=== PATIENT | male | born 1940 | race Caucasian/White ===

== ENCOUNTER 2019-05-26 00:05 | Emergency (ER) | payer OTHER ==
[~2019-05-26] VITALS: Ht 167.6 cm; Wt 75.3 kg
[~2019-05-26 00:05] MED LIST: ASPI81TA31 PO
--- NOTE | 2019-05-26 00:45 | NUR ---
Pt states doesn't take any medications.
[2019-05-26] MEDS ORDERED: IV NORMAL SALINE 1000 ML BAG IV ONE (01:00)
[2019-05-26 01:18] LABS: BASOPHILS # (AUTO) 0.1 K/uL (0.0-8.0); BASOPHILS % (AUTO) 0.8 % (0.0-2.0); EOSINOPHILS # (AUTO) 0.1 K/uL (0.0-0.7); EOSINOPHILS % (AUTO) 0.7 % (0.0-7.0); HEMATOCRIT 39.5 % (36.7-47.1); LYMPHOCYTES # (AUTO) 1.8 K/uL (20.0-40.0); LYMPHOCYTES % (AUTO) 18.5 % (20.5-51.5); MEAN CORPUSCULAR HEMOGLOBIN 36.2 uug (23.8-33.4); MEAN CORPUSCULAR HGB CONC 36 g/dL (32.5-36.3); MONOCYTES # (AUTO) 1.5 K/uL (2.0-10.0); MONOCYTES % (AUTO) 15.2 % (0.0-11.0); NEUTROPHILS # (AUTO) 6.4 K/uL (1.8-8.9); NEUTROPHILS % (AUTO) 64.8 % (38.5-71.5); PLATELET COUNT (AUTO) 255 K/uL (152-348); RED BLOOD CELL COUNT(AUTO) 3.87 MIL/uL (4.06-5.63); WHITE BLOOD COUNT (AUTO) 9.9 K/uL (3.6-10.2)
[2019-05-26 01:33] LABS: CREATININE 0.8 mg/dL (0.6-1.3); POTASSIUM 3.7 mmol/L (3.5-5.1)
[2019-05-26 01:35] LABS: LYMPHOCYTES % (MANUAL) 19 % (20-40); MONOCYTES % (MANUAL) 15 % (2-10); NEUTROPHILS % (MANUAL) 65 % (42-75)
[2019-05-26 01:36] LABS: BASOPHILS % (MANUAL) 1 % (0-2); EOSINOPHILS % (MANUAL) 0 % (0-8)
[2019-05-26 01:48] LABS: BILIRUBIN,DIRECT 0.7 mg/dL (0.0-0.2); BILIRUBIN,TOTAL 1.9 mg/dL (0.2-1.0); TOTAL PROTEIN, SERUM 7.3 g/dL (6.4-8.2)
[2019-05-26] MEDS ORDERED: PIPERACILLIN SODIUM/TAZOBACTAM 3.375 G in IV DEXTROSE 5% 50 ML IV ONE (02:00)
[2019-05-26] MEDS ORDERED: PIPERACILLIN/TAZOBACTAM/D5W 50 ML IV ONE (02:14)
--- NOTE | 2019-05-26 02:49 | NUR ---
Pt provided urine sample, sent to lab. Ultrasound at bedside.
[2019-05-26 02:54] LABS: *BILIRUBIN,URIN NEGATIVE (NEGATIVE); *BLOOD, URINE 2+ (NEGATIVE); *CLARITY,URINE CLEAR (CLEAR); *COLOR,URINE YELLOW (YELLOW); *KETONES,URINE TRACE (NEGATIVE); *UROBILINOGEN,URINE >=8.0 E.U./dl (NORMAL); LEUKOCYTE ESTERASE ,URINE NEGATIVE (NEGATIVE); NITRITE, URINE NEGATIVE (NEGATIVE); PH,URINE 5.5 (5.0-8.0); UGLUCOSE NEGATIVE (NEGATIVE)
[2019-05-26 03:03] LABS: BACTERIA,URINE NONE SEEN /HPF (NONE SEEN); SQUAMOUS EPITHELIAL CELL,UR FEW /HPF (NONE SEEN); WBC,URINE 0-3 /HPF (0-3)
--- NOTE | 2019-05-26 03:42 | NUR ---
Dr. Dwyer speaking with Dr. Shrestha, urologist.
[2019-05-26] MEDS ORDERED: VANCOMYCIN IV 1,000 MG in IV DEXTROSE 5% 250 ML IV ONE (03:45)
[2019-05-26] MEDS ORDERED: CLINDAMYCIN PHOSPHATE IV 900 MG in IV DEXTROSE 5% 100 ML IV ONE (03:45)
[2019-05-26] MEDS ORDERED: CLINDAMYCIN 900MG/D5W 100ML IVPB **ER PYXIS ONLY IJ ONE (03:55)
[2019-05-26] MEDS ORDERED: VANCOMYCIN IV 200 ML ONE (03:57)
--- NOTE | 2019-05-26 04:15 | NUR ---
Dr. Dwyer speaking with Dr. Overton of [place].
--- NOTE | 2019-05-26 04:54 | NUR ---
[place] Deuce jimenez Called to inform [facility] that pt will be picked up by [facility] ambulance @ [id number]. Dr Wright admitting Doctor staff to call [facility] in [place] [phone] to give report
== END 2019-05-26 05:24 | disposition short-term general hospital (02) ==
LOC: ER 00:11
DX: N49.2 Inflammatory disorders of scrotum (principal); Z79.82 Long term (current) use of aspirin
CPT/HCPCS: 36415; 71045; 76870; 80048; 80076; 81000; 81001; 83605; 83880; 84484; 85025; 85730 ×2; 87040 ×2; 87086; 93005; 96365; 96367; 99285; J2543; J3370; J3490; 70030-TC; A4663; J7030; J7060